=== PATIENT | female | born 1975 | race Two or more races ===

== ENCOUNTER → 2024-02-04 | Outpatient (CLI) | payer MEDICAID, SELFPAY ==
--- NOTE | 2024-02-04 14:03 | XR_ITS ---
Examination: Bilateral knees 2 views Right lateral knee left lateral knee 2 views Bilateral axial knees single view TECHNIQUE: Bilateral AP knees standing single view, bilateral PA knees standing single view 30 degrees flexion Standing right and left lateral knees 2 views Bilateral axial knees single view total 5 views Exam date and time: February 04, 2024 at 1505 hours INDICATIONS: Bilateral knee pain beginning 18 months ago FINDINGS: Advanced narrowing medial joint space right knee, [id number] Moderate osteoarthritis right patellofemoral joint No fracture or dislocation Mild to moderate narrowing medial joint space left knee Mild to moderate narrowing left patellofemoral joint No fracture or dislocation IMPRESSION: Advanced narrowing medial joint space right knee, [id number]
== END | disposition home or self-care (01) ==
LOC: CDIM 13:42
PROVIDERS: Referring Provider Orthopaedic Surgery Adult Reconstructive Orthopaedic Surgery; Visit Provider Orthopaedic Surgery Adult Reconstructive Orthopaedic Surgery
DX: M25.862 Other specified joint disorders, left knee (principal); M25.861 Other specified joint disorders, right knee
CPT/HCPCS: 73564

== ENCOUNTER 2024-02-26 13:48 | Outpatient (AMB) | payer MEDICAID, SELFPAY ==
--- NOTE | 2024-02-26 14:01 | RHCORTHONT_ITS ---
Vital signs 02/26/24 14:02 Height 1.52 m Height Method Stated Weight 69.938 kg Weight Measurement Method Standing Scale BMI 30.1 BP 147/85 H Blood Pressure Source Automatic Cuff Blood Pressure Location Right Upper Arm Position Sitting Respiration 18 Pulse 66 Pulse Source Monitor Temp 97.5 F Temp Source Temporal Artery Scan Pulse Oximetry (%) 100 Oxygen Delivery Method Room Air Med/Allergies Allergies & Medications Allergies No Known Allergies Allergy (Verified 03/25/21 17:26) Exam Exam Patient is in no acute distress and is cooperative with the examination today. Breathing is nonlabored. Patient has a normal mood and affect. Bilateral extremities were evaluated and demonstrates sensation intact to light touch. Palpable pedal pulses are present. No significant edema is present. Bilateral hips were examined. The patient has no pain with log roll of the hips. Internal rotation to 30 degrees and external rotation to 30 degrees is painless. Negative FADIR. Left knee was examined today. The left knee is in reasonable alignment. Range of motion from 0-120 degrees. Knee is stable to varus and valgus as well as AP translation with <5mm. Patient has a negative McMurrays. There is no pain with patellofemoral compression and no crepitus noted. The knee is nontender to palpation. The right knee was also examined. The right knee is in [varus] alignment. Range of motion from [0-115] degrees. Knee is stable to varus and valgus as well as AP translation with <5mm. Patient has a [negative] McMurrays. There is [no] pain with patellofemoral compression and [no] crepitus noted. The knee is [tender] to palpation [medially]. X-rays of the right knee demonstrate significant joint space narrowing medially with complete obliteration of medial joint space. There are osteophytes. Assessment and Plan Problem List (1) Arthritis of right knee: Status: Acute Plan: Patient is a 49-year-old female with right knee pain and right knee arthritis. We discussed nonoperative and operative options. We will start with a brace as well as repeat cortisone injections. She will need approval for this. We will see her back once we get approval for her injections Office Procedures GNS Level of Care Nursing/Assessment Patient Status: Established Patient Nursing Assessment/Reassesment: Medication Reconciliation, Update PMH in EMR and Vital Signs Coordination of Care: Complex Care and Chronic Disease 1-5, Education Complex Pt/Fam, Consent,records obtained, informed consent, Results/Orders obtained and Staff clarify orders Special Needs: Language special needs Established Patient Charge Established Patient Point Assignment: 95 Established Patient Point Charge: EP Level 4 (120-155) MA Intake Visit Data Collection New Patient or Established: Established Patient (seen at [facility] within 3 years) Reason for Visit:: right knee Administrative Court Justice Required: No PCP or OBGYN visit in last 3 months: Yes Hx Now: No Do You Feel Safe at Home: Yes Questionairres Past Medical History Past Medical History Have you ever been diagnosed with any of the following: Cardiology Problems Congestive Heart Failure: No Hypertension: Yes Respiratory Problems Chronic Obstructive Pulmonary Disease (COPD): No Smoking: No Smoking Exposure: No Genital/Urinary Problems Renal Disease: No Endocrine Problems Diabetes Mellitus Type 1: No Diabetes Mellitus Type 2: No Subjective Visit Visit for: new patient and knee Immunization / Flu Flu Vaccine in the Last 12 Months: Yes Flu Vaccine Exclusion Criteria: Already Received History of Present Illness Chief complaint: right knee pain Date of injury / onset of symptoms: years Patient is a 49-year-old female with severe right knee arthritis. The pain started affect her quality life and happiness. 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 She has tried 2 injections in the past and some anti- inflammatories. She has tried physical therapy but had persistent pain. Pain Pain level (0-10): 6 Pain duration: all day Pain location: inside (medial), outside (lateral), anterior and posterior Pain quality: sharp, dull and aching Pain timing: night and increases with activity Associated signs & symptoms: none Ambulatory data Ambulatory device: none Treatments Improvement with previous injections: No Improvement with PT: No Improvement with NSAIDS: n/a Review of Systems Review of Systems: All systems negative unless otherwise noted in HPI.
[2024-02-26 14:02] VITALS: BP 147/85; PULSE 66; RESP 18; TEMP 36.4; O2SAT 100; BMI 30.1
== END 2024-02-26 14:38 | disposition home or self-care (01) ==
LOC: HODSRG 13:48
PROVIDERS: PCP Physician Assistant Medical; Referring Provider Physician Assistant Medical; Supervising Provider Orthopaedic Surgery Adult Reconstructive Orthopaedic Surgery; Visit Provider Orthopaedic Surgery Adult Reconstructive Orthopaedic Surgery
DX: M17.11 Unilateral primary osteoarthritis, right knee (principal); M25.561 Pain in right knee; I10 Essential (primary) hypertension
CPT/HCPCS: 99214; G0463

== ENCOUNTER 2024-03-07 11:02 | Outpatient (AMB) | payer MEDICAID, SELFPAY ==
[2024-03-07 11:40] VITALS: BP 149/89; PULSE 66; RESP 19; TEMP 35.7; O2SAT 98; BMI 29.1
--- NOTE | 2024-03-07 11:40 | ORTHONT_ITS ---
Vital signs 03/07/24 11:40 Height 1.52 m Height Method Stated Weight 67.33 kg Weight Measurement Method Standing Scale BMI 29.1 BP 149/89 H Blood Pressure Source Automatic Cuff Blood Pressure Location Left Upper Arm Position Sitting Respiration 19 Pulse 66 Pulse Source Monitor Temp 96.3 F L Temp Source Temporal Artery Scan Pulse Oximetry (%) 98 Oxygen Delivery Method Room Air Med/Allergies Allergies & Medications Allergies No Known Allergies Allergy (Verified 03/07/24 11:43) Medication Reconciliation ibuprofen 600 mg tablet 600 mg PO Q6H PRN pain #14 tabs 06/02/19 [Rx Confirmed 03/07/24] albuterol sulfate 90 mcg/actuation aerosol inhaler (Ventolin HFA) 2 puff inhalation Q6H PRN shortness of breath or wheezing #8.5 grams 03/25/21 [Rx Confirmed 03/07/24] promethazine-DM 6.25 mg-15 mg/5 mL oral syrup 5 ml PO Q6H PRN cough #118 mL 03/25/21 [Rx Confirmed 03/07/24] acetaminophen 500 mg tablet (Tylenol Extra Strength) 1,000 mg (2 x 500 mg) PO Q6H PRN pain #30 tabs 05/15/23 [Rx Confirmed 03/07/24] ibuprofen 600 mg tablet 600 mg PO Q6H PRN pain #30 tabs 05/15/23 [Rx Confirmed 03/07/24] meloxicam 7.5 mg tablet 7.5 mg PO QDAY #45 tabs 02/26/24 [Rx Confirmed 03/07/24] Exam Exam Patient is in no acute distress and is cooperative with the examination today. Breathing is nonlabored. Patient has a normal mood and affect. Bilateral extremities were evaluated and demonstrates sensation intact to light touch. Palpable pedal pulses are present. No significant edema is present. Bilateral hips were examined. The patient has no pain with log roll of the hips. Internal rotation to 30 degrees and external rotation to 30 degrees is painless. Negative FADIR. Left knee was examined today. The left knee is in reasonable alignment. Range of motion from 0-120 degrees. Knee is stable to varus and valgus as well as AP translation with <5mm. Patient has a negative McMurrays. There is no pain with patellofemoral compression and no crepitus noted. The knee is nontender to palpation. The right knee was also examined. The right knee is in [varus] alignment. Range of motion from [0-115] degrees. Knee is stable to varus and valgus as well as AP translation with <5mm. Patient has a [negative] McMurrays. There is [no] pain with patellofemoral compression and [no] crepitus noted. The knee is [tender] to palpation [medially]. X-rays of the right knee demonstrate significant joint space narrowing medially with complete obliteration of medial joint space. There are osteophytes. Assessment and Plan Problem List (1) Arthritis of right knee: Status: Acute Plan: Patient is a 49-year-old female with right knee pain and right knee arthritis. We discussed nonoperative and operative options. We will start with a brace as well as repeat cortisone injections. \ Plan Recommend knee cortisone injection as patient would like to proceed with conservative treatment at this time. The risks and benefits of the procedure were reviewed with the patient and patient gave verbal consent to continue with the procedure. Procedure: performed by Dr. Dupree Using sterile technique the Right knee was thoroughly prepped with alcohol, and approximately 1 cc of Kenalog 40 mg/mL and 4 cc of 1% lidocaine was injected without resistance into the medial tibial femoral joint space. The patient tolerated the procedure. Office Procedures GNS Level of Care Nursing/Assessment Patient Status: Established Patient Nursing Assessment/Reassesment: Medication Reconciliation, Update PMH in EMR and Vital Signs Coordination of Care: Complex Care and Chronic Disease 1-5, Education Complex Pt/Fam, Consent,records obtained, informed consent, 1 Ins Authorization, Results/Orders obtained and Staff clarify orders Special Needs: Language special needs Established Patient Charge Established Patient Point Assignment: 110 Established Patient Point Charge: EP Level 3 (80-115) Surgical Proc/IM SQ injection Major Surgical Procedure: Yes (knee injection right) Medication Given Medication Given Medication Given: Yes Documented Dose Given: 4 Route: Infiitration Medication Given Medication Given Medication Given: Yes Documented Dose Given: 1 Route: Infiitration Office Meds Xylocaine 10 mg/mL (1 %) injection solution Performing Provider: Fernadno Dupree MD Performing Location: [facility] Administered by: Fernando Dupree MD on 03/07/24 11:44 Dose Route Admin Location Dispensed Lot Number Expiration Date FORMERLY NAMED [facility] [employer]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 20 mL Infiltration 20 mL [id number] 11/08/26 86418-757-97 [employer] triamcinolone acetonide 40 mg/mL suspension for injection Performing Provider: Fernando Dupree MD Performing Location: [facility] Administered by: Fernando Dupree MD on 03/07/24 11:44 Dose Route Admin Location Dispensed Lot Number Expiration Date FORMERLY NAMED [facility] [employer]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 40 mg intra-articular 1 mL [id number] 08/08/25 4186-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-66 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 Intake Visit Data Collection New Patient or Established: Established Patient (seen at [facility] within 3 years) Reason for Visit:: follow up knee inj Seen by Clinical Staff ONLY (RN/MA): No Bonded Strand Operator Required: Yes PCP or OBGYN visit in last 3 months: Yes Hx Now: No Do You Feel Safe at Home: Yes Authorities Contacted: N/A Questionairres Past Medical History Past Medical History Have you ever been diagnosed with any of the following: Cardiology Problems Congestive Heart Failure: No Hypertension: Yes Respiratory Problems Chronic Obstructive Pulmonary Disease (COPD): No Smoking: No Smoking Exposure: No Genital/Urinary Problems Renal Disease: No Endocrine Problems Diabetes Mellitus Type 1: No Diabetes Mellitus Type 2: No Subjective Visit Visit for: follow up visit and knee Immunization / Flu Flu Vaccine in the Last 12 Months: No Flu Vaccine Exclusion Criteria: No Exclusion Criteria History of Present Illness Chief complaint: right knee oa Patient is a 49-year-old female with severe right knee arthritis. The pain started affect her quality life and happiness. 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 She has tried 2 injections in the past and some anti- inflammatories. She has tried physical therapy but had persistent pain. Pain Pain level (0-10): 3 Pain duration: on and off Pain location: inside (medial) Pain quality: aching Pain timing: increases with activity Associated signs & symptoms: none Ambulatory data Ambulatory device: none Treatments Improvement with previous injections: No Improvement with PT: No Improvement with NSAIDS: no Review of Systems Review of Systems: All systems negative unless otherwise noted in HPI.
== END 2024-03-07 11:47 | disposition home or self-care (01) ==
LOC: HODSRG 11:02
PROVIDERS: Supervising Provider Orthopaedic Surgery Adult Reconstructive Orthopaedic Surgery; Visit Provider Orthopaedic Surgery Adult Reconstructive Orthopaedic Surgery
DX: M17.11 Unilateral primary osteoarthritis, right knee (principal); M25.561 Pain in right knee; I10 Essential (primary) hypertension
CPT/HCPCS: 20610; 99213; J3301; J3490; G0463

== ENCOUNTER 2024-07-03 14:31 | Outpatient (AMB) | payer MEDICAID, SELFPAY ==
[2024-07-03 14:47] VITALS: BP 167/92; PULSE 61; RESP 18; TEMP 36.2; O2SAT 98; BMI 29.9
--- NOTE | 2024-07-03 14:47 | PD.ORTHCLVIS ---
Vital signs 07/03/24 14:47 Height 1.52 m Height Method Stated Weight 69.201 kg Weight Measurement Method Standing Scale BMI 29.9 BP 167/92 H Blood Pressure Source Automatic Cuff Blood Pressure Location Left Upper Arm Position Sitting Respiration 18 Pulse 61 Pulse Source Monitor Temp 97.1 F Temp Source Temporal Artery Scan Pulse Oximetry (%) 98 Oxygen Delivery Method Room Air Med/Allergies Allergies & Medications Allergies No Known Allergies Allergy (Verified 07/03/24 14:48) Medication Reconciliation albuterol sulfate 90 mcg/actuation aerosol inhaler (Ventolin HFA) 2 puff inhalation Q6H PRN shortness of breath or wheezing #8.5 grams 03/25/21 [Rx Confirmed 07/03/24] promethazine-DM 6.25 mg-15 mg/5 mL oral syrup 5 ml PO Q6H PRN cough #118 mL 03/25/21 [Rx Confirmed 07/03/24] acetaminophen 500 mg tablet (Tylenol Extra Strength) 1,000 mg (2 x 500 mg) PO Q6H PRN pain #30 tabs 05/15/23 [Rx Confirmed 07/03/24] ibuprofen 600 mg tablet 600 mg PO Q6H PRN pain #30 tabs 05/15/23 [Rx Confirmed 07/03/24] meloxicam 7.5 mg tablet 7.5 mg PO QDAY #45 tabs 02/26/24 [Rx Confirmed 07/03/24] Exam Exam Patient is in no acute distress and is cooperative with the examination today. Breathing is nonlabored. Patient has a normal mood and affect. Bilateral extremities were evaluated and demonstrates sensation intact to light touch. Palpable pedal pulses are present. No significant edema is present. Bilateral hips were examined. The patient has no pain with log roll of the hips. Internal rotation to 30 degrees and external rotation to 30 degrees is painless. Negative FADIR. Left knee was examined today. The left knee is in reasonable alignment. Range of motion from 0-120 degrees. Knee is stable to varus and valgus as well as AP translation with <5mm. Patient has a negative McMurrays. There is no pain with patellofemoral compression and no crepitus noted. The knee is nontender to palpation. The right knee was also examined. The right knee is in [varus] alignment. Range of motion from [0-115] degrees. Knee is stable to varus and valgus as well as AP translation with <5mm. Patient has a [negative] McMurrays. There is [no] pain with patellofemoral compression and [no] crepitus noted. The knee is [tender] to palpation [medially]. X-rays of the right knee demonstrate significant joint space narrowing medially with complete obliteration of medial joint space. There are osteophytes. Assessment and Plan Problem List (1) Arthritis of right knee: Status: Acute Plan: Patient is a 49-year-old female with right knee pain and right knee arthritis. We discussed nonoperative and operative options. Given that she is failed injections x 3, anti-inflammatories, and physical therapy. We discussed total knee replacement on the right as a reasonable option. She is exhausted conservative treatment and the pain is affecting her quality life and happiness. We discussed that she is on the young side for her age and may need a revision surgery in the future if she outlasts the implant Plan The nature and purpose of the total knee replacement, alternative method(s) of treatment, the material risks involved, and the possibility of complications were fully explained to the patient. The patient does NOT have any of the following contraindications to TKA: - Active infection of the knee joint, OR - Active systemic bacteremia, OR - Active skin infection or open wound at surgical site, OR - Neuropathic arthritis, OR - Severe, rapidly progressive neurological disease, OR - Severe medical condition that makes risks of surgery outweigh the potential benefit The patient was told the most common risks and complications associated with a total knee replacement include, but are not limited to: blood clots in the leg, fatal pulmonary embolism, dislocation of the prosthesis, intraoperative and postoperative fractures of the femur or tibia, infection, failure of the prosthesis or grafting materials, complications from anesthesia, reactions to blood transfusions, postoperative leg length inequality, instability of the knee replacement, nerve damage or injury, vascular injury, delayed wound healing, infection, other injury or even . In addition, there are risks associated with anesthesia given during this operation. Also, the patient was told that after undergoing a total knee replacement there may still be persistent pain or disability. The patient was informed that the success of this operation in part depends upon the mechanical devices which are going to be implanted and that these devices can fail or malfunction, and may need to be repaired or replaced and there are no guarantees as to the longevity of this device or its parts and that it or its parts could fail prematurely. The patient was also notified that during the course of surgery, there may be a need to use bone graft from donors, and that any bone graft used will be carefully screened for communicable diseases, including AIDS, hepatitis, Jake-Creutzfeldt, or other diseases, but despite the screening procedures, there is a small chance that they could contract one of these diseases. Finally, the patient was asked to follow completely and fully with all advice and recommended treatments, and that recovery and ultimate outcome are affected by their compliance with recommended treatment. We discussed the risks, benefits and treatment alternatives, and the patient is interested in proceeding with surgery. We will try to set this up as expeditiously as possible. Office Procedures GNS Level of Care Nursing/Assessment Patient Status: Established Patient Nursing Assessment/Reassesment: Medication Reconciliation, Update PMH in EMR and Vital Signs Coordination of Care: Complex Care and Chronic Disease 1-5, Education Complex Pt/Fam, Consent,records obtained, informed consent, Results/Orders obtained and Staff clarify orders Established Patient Charge Established Patient Point Assignment: 95 Established Patient Point Charge: EP Level 3 (80-115) MA Intake Visit Data Collection New Patient or Established: Established Patient (seen at [facility] within 3 years) Reason for Visit:: FOLLOW UP KNEE PAIN Seen by Clinical Staff ONLY (RN/MA): No Night Shift Manager Required: Yes PCP or OBGYN visit in last 3 months: Yes Hx Now: No Do You Feel Safe at Home: Yes Authorities Contacted: N/A Questionairres Past Medical History Past Medical History Have you ever been diagnosed with any of the following: Cardiology Problems Congestive Heart Failure: No Hypertension: Yes Respiratory Problems Chronic Obstructive Pulmonary Disease (COPD): No Smoking: No Smoking Exposure: No Genital/Urinary Problems Renal Disease: No Endocrine Problems Diabetes Mellitus Type 1: No Diabetes Mellitus Type 2: No Subjective Visit Visit for: follow up visit and knee Immunization / Flu Flu Vaccine in the Last 12 Months: No Flu Vaccine Exclusion Criteria: No Exclusion Criteria History of Present Illness Chief complaint: right knee oa Patient is a 49-year-old female with severe right knee arthritis. The pain started affect her quality life and happiness. 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 She has tried 3 injections in the past and some anti-inflammatories. She has tried physical therapy but had persistent pain. Pain Pain level (0-10): 9 Pain duration: ALL DAY Pain location: posterior Pain quality: sharp, dull and aching Pain timing: increases with activity Associated signs & symptoms: none Ambulatory data Ambulatory device: none Treatments Number of previous injections: 1 Improvement with previous injections: No Improvement with PT: No Improvement with NSAIDS: no Review of Systems Review of Systems: All systems negative unless otherwise noted in HPI.
== END 2024-07-03 14:56 | disposition home or self-care (01) ==
LOC: HODSRG 14:31
PROVIDERS: Supervising Provider Orthopaedic Surgery Adult Reconstructive Orthopaedic Surgery; Visit Provider Orthopaedic Surgery Adult Reconstructive Orthopaedic Surgery
DX: M17.11 Unilateral primary osteoarthritis, right knee (principal); M25.561 Pain in right knee; I10 Essential (primary) hypertension
CPT/HCPCS: 99213; G0463

== ENCOUNTER → 2024-09-19 | Outpatient (CLI) | payer MEDICAID, SELFPAY ==
[2024-09-19 11:28] LABS: HCG Qualitative,Urine Negative
--- NOTE | 2024-09-19 12:00 | XR_ITS ---
Examination: CT right lower extremity, without contrast. 2-D sagittal reconstructions. 2-D coronal reconstructions. 3-D reconstructions. Date and time of exam:07/20/2024 1149 hours INDICATIONS: Diagnosis unilateral right knee osteoarthritis, right knee pain 2 years CTDI: vol (mGy):26.45 DLP: (mGycm):943 Technique: Multiple 1.25 mm axial sections of the right lower extremity without intravenous contrast have been obtained. 2-D sagittal and coronal reconstructions have been obtained. 3-D reconstructions have been obtained. Low dose protocols were performed. One or more of the following dose reduction techniques were used; automated exposure control, adjustment of the mA and/or KV according to patient size, use of iterative reconstruction technique. Findings: Moderate osteopenia Mild to moderate narrowing hip joints bilaterally Severe narrowing medial joint space right knee Moderate osteoarthritis lateral patellofemoral joints No fractures No patellar dislocation IMPRESSION: Severe narrowing medial joint space right knee
== END | disposition home or self-care (01) ==
PROVIDERS: PCP Physician Assistant Medical; Referring Provider Radiology Diagnostic Radiology; Visit Provider Orthopaedic Surgery Adult Reconstructive Orthopaedic Surgery
DX: M25.861 Other specified joint disorders, right knee (principal); Z32.00 Encounter for pregnancy test, result unknown
CPT/HCPCS: 73700; 81025

== ENCOUNTER 2024-09-23 10:11 | Outpatient (AMB) | payer MEDICAID, SELFPAY ==
--- NOTE | 2024-09-23 10:55 | PD.ORTHCLVIS ---
Vital signs 09/23/24 10:56 Height 1.52 m Height Method Stated Weight 70.335 kg Weight Measurement Method Standing Scale BMI 30.4 BP 152/79 H Blood Pressure Source Automatic Cuff Blood Pressure Location Left Upper Arm Position Sitting Respiration 18 Pulse 80 Pulse Source Monitor Temp 96.7 F L Temp Source Temporal Artery Scan Pulse Oximetry (%) 97 Oxygen Delivery Method Room Air Med/Allergies Allergies & Medications Allergies No Known Allergies Allergy (Verified 09/23/24 10:56) Medication Reconciliation albuterol sulfate 90 mcg/actuation aerosol inhaler (Ventolin HFA) 2 puff inhalation Q6H PRN shortness of breath or wheezing #8.5 grams 03/25/21 [Rx Confirmed 07/03/24] promethazine-DM 6.25 mg-15 mg/5 mL oral syrup 5 ml PO Q6H PRN cough #118 mL 03/25/21 [Rx Confirmed 09/23/24] acetaminophen 500 mg tablet (Tylenol Extra Strength) 1,000 mg (2 x 500 mg) PO Q6H PRN pain #30 tabs 05/15/23 [Rx Confirmed 09/23/24] ibuprofen 600 mg tablet 600 mg PO Q6H PRN pain #30 tabs 05/15/23 [Rx Confirmed 09/23/24] meloxicam 7.5 mg tablet 7.5 mg PO QDAY #45 tabs 07/03/24 [Rx Confirmed 09/23/24] Exam Exam Patient is in no acute distress and is cooperative with the examination today. Breathing is nonlabored. Patient has a normal mood and affect. Bilateral extremities were evaluated and demonstrates sensation intact to light touch. Palpable pedal pulses are present. No significant edema is present. Bilateral hips were examined. The patient has no pain with log roll of the hips. Internal rotation to 30 degrees and external rotation to 30 degrees is painless. Negative FADIR. Left knee was examined today. The left knee is in reasonable alignment. Range of motion from 0-120 degrees. Knee is stable to varus and valgus as well as AP translation with <5mm. Patient has a negative McMurrays. There is no pain with patellofemoral compression and no crepitus noted. The knee is nontender to palpation. The right knee was also examined. The right knee is in [varus] alignment. Range of motion from [0-115] degrees. Knee is stable to varus and valgus as well as AP translation with <5mm. Patient has a [negative] McMurrays. There is [no] pain with patellofemoral compression and [no] crepitus noted. The knee is [tender] to palpation [medially]. X-rays of the right knee demonstrate significant joint space narrowing medially with complete obliteration of medial joint space. There are osteophytes. Assessment and Plan Problem List (1) Arthritis of right knee: Status: Acute Plan: Patient is a 49-year-old female with right knee pain and right knee arthritis. We discussed nonoperative and operative options. Given that she is failed injections x 3, anti-inflammatories, and physical therapy. We discussed total knee replacement on the right as a reasonable option. She is exhausted conservative treatment and the pain is affecting her quality life and happiness. We discussed that she is on the young side for her age and may need a revision surgery in the future if she outlasts the implant We will set her up for an injection on the left side as the left knee has been bothering her. She has had for surgery on the right side in 1 week Recommend knee cortisone injection as patient would like to proceed with conservative treatment at this time. The risks and benefits of the procedure were reviewed with the patient and patient gave verbal consent to continue with the procedure. Procedure: performed by Dr. Dupree Using sterile technique the left knee was thoroughly prepped with alcohol, and approximately 1 cc of Kenalog 40 mg/mL and 4 cc of 1% lidocaine was injected without resistance into the medial tibial femoral joint space. The patient tolerated the procedure. Plan The nature and purpose of the total knee replacement, alternative method(s) of treatment, the material risks involved, and the possibility of complications were fully explained to the patient. The patient does NOT have any of the following contraindications to TKA: - Active infection of the knee joint, OR - Active systemic bacteremia, OR - Active skin infection or open wound at surgical site, OR - Neuropathic arthritis, OR - Severe, rapidly progressive neurological disease, OR - Severe medical condition that makes risks of surgery outweigh the potential benefit The patient was told the most common risks and complications associated with a total knee replacement include, but are not limited to: blood clots in the leg, fatal pulmonary embolism, dislocation of the prosthesis, intraoperative and postoperative fractures of the femur or tibia, infection, failure of the prosthesis or grafting materials, complications from anesthesia, reactions to blood transfusions, postoperative leg length inequality, instability of the knee replacement, nerve damage or injury, vascular injury, delayed wound healing, infection, other injury or even . In addition, there are risks associated with anesthesia given during this operation. Also, the patient was told that after undergoing a total knee replacement there may still be persistent pain or disability. The patient was informed that the success of this operation in part depends upon the mechanical devices which are going to be implanted and that these devices can fail or malfunction, and may need to be repaired or replaced and there are no guarantees as to the longevity of this device or its parts and that it or its parts could fail prematurely. The patient was also notified that during the course of surgery, there may be a need to use bone graft from donors, and that any bone graft used will be carefully screened for communicable diseases, including AIDS, hepatitis, Jake-Creutzfeldt, or other diseases, but despite the screening procedures, there is a small chance that they could contract one of these diseases. Finally, the patient was asked to follow completely and fully with all advice and recommended treatments, and that recovery and ultimate outcome are affected by their compliance with recommended treatment. We discussed the risks, benefits and treatment alternatives, and the patient is interested in proceeding with surgery. We will try to set this up as expeditiously as possible. Office Procedures GNS Level of Care Nursing/Assessment Patient Status: Established Patient Nursing Assessment/Reassesment: Medication Reconciliation, Update PMH in EMR and Vital Signs Coordination of Care: Complex Care and Chronic Disease 1-5, Education Complex Pt/Fam, Consent,records obtained, informed consent, Results/Orders obtained and Staff clarify orders Special Needs: Language special needs Established Patient Charge Established Patient Point Assignment: 95 Established Patient Point Charge: EP Level 3 (80-115) MA Intake Visit Data Collection New Patient or Established: Established Patient (seen at [facility] within 3 years) Reason for Visit:: PRE OP Seen by Clinical Staff ONLY (RN/MA): No 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 Digester 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 Required: Yes PCP or OBGYN visit in last 3 months: Yes Hx Now: No Do You Feel Safe at Home: Yes Authorities Contacted: N/A Questionairres Past Medical History Past Medical History Have you ever been diagnosed with any of the following: Cardiology Problems Congestive Heart Failure: No Hypertension: Yes Respiratory Problems Chronic Obstructive Pulmonary Disease (COPD): No Smoking: No Smoking Exposure: No Genital/Urinary Problems Renal Disease: No Endocrine Problems Diabetes Mellitus Type 1: No Diabetes Mellitus Type 2: No Subjective Visit Visit for: follow up visit and knee Immunization / Flu Flu Vaccine in the Last 12 Months: No Flu Vaccine Exclusion Criteria: No Exclusion Criteria History of Present Illness Chief complaint: right knee oa Patient is a 49-year-old female with severe right knee arthritis. The pain started affect her quality life and happiness. 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 She has tried 3 injections in the past and some anti-inflammatories. She has tried physical therapy but had persistent pain. Personal History Additional comments: WALKER WAS GIVEN TO PATIENT Pain Pain level (0-10): 8 Pain duration: ALL DAY Pain location: inside (medial), anterior and posterior Pain quality: sharp, dull and aching Pain timing: night, increases with activity and stairs Associated signs & symptoms: none Ambulatory data Ambulatory device: walker (GIVEN TODAY FOR SX) and none Treatments Number of previous injections: 1 Improvement with previous injections: No Improvement with PT: No Improvement with NSAIDS: no Review of Systems Review of Systems: All systems negative unless otherwise noted in HPI.
[2024-09-23 10:56] VITALS: BP 152/79; PULSE 80; RESP 18; TEMP 35.9; O2SAT 97; BMI 30.4
== END 2024-09-23 11:11 | disposition home or self-care (01) ==
LOC: HODSRG 10:11
PROVIDERS: PCP Physician Assistant Medical; Referring Provider Physician Assistant Medical; Supervising Provider Orthopaedic Surgery Adult Reconstructive Orthopaedic Surgery; Visit Provider Orthopaedic Surgery Adult Reconstructive Orthopaedic Surgery
DX: M17.11 Unilateral primary osteoarthritis, right knee (principal); M25.561 Pain in right knee; I10 Essential (primary) hypertension
CPT/HCPCS: 20610; 99213; J3301; J3490; G0463

== ENCOUNTER 2024-10-01 06:50 | Day surgery (SDC) | payer MEDICAID, SELFPAY ==
[2024-09-30 07:51] VITALS: BMI 30.4
--- NOTE | 2024-09-30 07:59 | EKG_ITS ---
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
[2024-09-30 08:41] LABS: Basophils # (Auto) 0.0 Thou/mm3 (0.0-0.2); Basophils % (Auto) 1 % (0-2.5); Eosinophils # (Auto) 0.1 Thou/mm3 (0.0-0.5); Eosinophils % (Auto) 1 % (0-10); Hematocrit 39.1 % (36.0-46.0); Hemoglobin 13.1 g/dL (12.0-16.0); Immature Granulocytes Auto 0.02 Thou/mm3 (0.00-0.00); Lymphocytes # (Auto) 3.0 Thou/mm3 (1.0-4.8); Lymphocytes % (Auto) 42 % (10-50); Mean Corpuscular HGB Conc 33.5 g/dl (31.0-37.0); Mean Corpuscular Hemoglobin 29.2 pg (25.0-35.0); Mean Corpuscular Volume 87 fL (80-100); Monocytes # (Auto) 0.5 Thou/mm3 (0.0-0.8); Monocytes % (Auto) 7 % (0-12); Neutrophils # (Auto) 3.7 Thou/mm3 (1.8-7.7); Neutrophils % (Auto) 50 % (37-80); Nucleated Red Blood Cell # 0.00 Thou/mm3 (0.00-0.00); Nucleated Red Blood Cell % 0 /100 WBC (0); Platelet Count 279 Thou/mm3 (140-440); RDW Standard Deviation 42.1 fL (36.4-46.3); Red Blood Count 4.49 Miln/mm3 (4.00-5.20); White Blood Count 7.3 Thou/mm3 (3.6-11.0)
[2024-09-30 09:00] LABS: INR 1.0 (0.9-1.3); Partial Thromboplastin Time 27.0 Seconds (22.0-36.0); Prothrombin Time 10.5 Seconds (9.0-12.2)
[2024-09-30 09:09] LABS: HCG,Qualitative Serum Negative
[2024-09-30 09:12] LABS: Alanine Aminotransferase 25 U/L (10-49); Albumin, Serum 4.7 gm/dL (3.5-5.0); Albumin/Globulin Ratio 1.9 (1.2-2.2); Alkaline Phosphatase 112 U/L (46-116); Anion Gap 9 (7-16); Aspartate Amino Transferase 17 U/L (0-34); BUN/Creatinine Ratio 14 Ratio (12-20); Bilirubin,Total 0.4 mg/dL (0.3-1.2); Blood Urea Nitrogen 10 mg/dL (9-23); Calcium 9.3 mg/dL (8.3-10.6); Calcium (Corrected) 9.3 mg/dL (8.5-10.1); Carbon Dioxide 27.8 mMol/L (20.0-31.0); Chloride 106 mMol/L (98-107); Creatinine (Component) 0.7 mg/dL (0.6-1.3); Estimated Creatinine Clearance 85.4 mL/min (>60); Globulin 2.5 gm/dL (2.3-3.5); Glucose 91 mg/dL (74-106); Osmolality,Calculated 283 (275-295); Potassium 4.1 mMol/L (3.4-5.1); Sodium 143 mMol/L (136-145); Total Protein 7.2 gm/dL (5.7-8.2); eGFR > 60 See Note
[2024-10-01] VITALS (20 sets, daily range): BP systolic 110–148; BP diastolic 60–90; PULSE 70–103; RESP 14–21; TEMP 36.2–37.6; O2SAT 94–100; BMI 30.4
[2024-10-01] MEDS: ACETAMINOPHEN 325 MG TABLET 650 MG PO (07:27)
[2024-10-01] MEDS: MELOXICAM 7.5 MG TABLET PO (07:27)
[2024-10-01] MEDS: PREGABALIN 75 MG CAPSULE PO (07:27)
--- NOTE | 2024-10-01 13:08 | ESOP_ITS ---
Date of Procedure 10/01/24 Pre Op Diagnosis right knee osteoarthritis Post Op Diagnosis right knee osteoarthritis Procedure right total knee replacment fransico Findings full thickness cartilage loss and osteophytes Procedure Description Indication: The patient is a 49 year old who has a long history of right knee pain. X-rays show degenerative arthritis involving the knee. Over the past several years the patient has had increasing pain, progressive limitation in function. He has failed conservative measures including activity modification, physical therapy, injections, anti-inflammatories, and assistive devices. After a lengthy discussion of the risks and benefits, the patient presents now for total knee replacement. The nature and purpose of the total knee replacement, alternative method(s) of treatment, the material risks involved, and the possibility of complications were fully explained to the patient. The patient was told the most common risks and complications associated with a total knee replacement include, but are not limited to blood clots in the leg, fatal pulmonary embolism, dislocation of the prosthesis, intraoperative and postoperative fractures of the femur or tibia, infection, failure of the prosthesis or grafting materials, complications from anesthesia, reactions to blood transfusions, postoperative leg length inequality, instability of the knee replacement, nerve damage or injury, vascular injury, delayed wound healing, infections, other injury or even . In addition, there are risks associated with anesthesia given during this operation, temporary or permanent numbness on the skin lateral to the incision can be a complication unique to total knee surgery, and kneeling can be painful after knee replacement surgery. Also, the patient was told that after undergoing a total knee replacement there may still be pain or disability. We discussed with the patient that we will be using a robot-assisted technology. We discussed that there is a possibility of converting to manual instrumentation. The patient was informed that the success of this operation in part depends upon the mechanical devices which are going to be implanted and that these devices can fail or malfunction, and may need to be repaired or replaced and there are no guarantees as to the longevity of this device or its part and that it or its parts could fail prematurely. Finally, the patient was asked to follow completely and fully with all advice and recommended treatments, and that recovery and ultimate outcome are affected by their compliance with recommended treatment. Surgical technique: Patient was marked and consented in the pre-operative area. The patient was brought to the operating room and placed on the operating table in a supine position. Prior to positioning, a timeout procedure was performed between the surgeon, the anesthesiologist, and the nursing staff where the patient and the operative side were identified and confirmed. After adequate general anesthetic was obtained, the right lower extremity was prepped and draped in the usual sterile fashion. A weight based dose of Cefazolin were administered within 1 hour prior to incision. The robot was preregistered and calirated before the incision. The extremity was exsanguinated with an esmarch badge and tourniquet inflated to 250mmHg. A midline incision was made. A median parapatellar arthrotomy was made. The patella was subluxed laterally. A medial release was performed to expose the medial tibia. His femoral and tibial pins were placed through an intra incisional manner for both cases. Every effort was made to ensure that the distalmost aspect of the pin was hung in the second cortex. The arrays were then tightened several times to ensure that it was fixed for the remainder of the case. Both femoral and tibial checkpoints were then placed. We then went through the registration process of the bone. We then assessed the knee deformity and attempted to correct it. We also used the robot to aid in judging laxity in both extension and flexion. Final based on laxity and alignment we changed the preoperative assessment to obtain proper proper implant positioning and to correct deformity. Attention was then placed to the tibia. We made a tibial cut using the robot ensuring that both the MCL and the patella tendon were protected with retractors. We then went to the femur and made the posterior cut followed by the anterior cut and the anterior chamfer. The bone was then removed and we made a distal femur cut and a posterior chamfer cut. We verified all cuts. A trial reduction was performed with a size 2 femoral component and a size [2] keeled tibial component. The patella tracked centrally, and no lateral retinacular release was necessary. The trial implants were removed. The arrays, pins, and checkpoints were all removed. We performed a verification that all pins were removed. The cut bone surfaces were lavaged. A size 2 right femoral component, a size [2] keeled tibial component were impacted into position. The knee was felt to be well balanced in the sagittal and coronal plane. The final [2x12] mm cruciate-substituting articular insert was impacted into the tibial tray. The knee was brought out to full extension, flexed up to 120 degrees. It was stable to varus and valgus stress and appropriately balanced in flexion and extension. The wounds were copiously irrigated following deflation of tourniquet. The medial retinaculum was reapproximated with #1 vicryl and quill. The subcutaneous tissues were closed with 0 and 2-0 interrupted Vicryl. The skin was closed with 3-0 Monofilament V loc suture. A sterile dressing was applied. The patient was transferred to a bed and brought to recovery in stable condition. The patient tolerated the procedure well. There were no intraoperative complications. Sponge and needle counts were correct times 2. As the attending surgeon, I attest I was present and performed the entire operation. Grafts/Implants Size 2 CR Femur Size [2] Tibia [12]mm poly CS Anesthesia spinal Implants shreyas Pathology / specimen None Pathology comment: none Estimated Blood Loss 150 Condition Stable Disposition same day Surgeon Fernando Dupree MD Surgical Staff Operation Date: 10/01/24 11:00 Case Staff Anesthesiologist: Jose Hollis RNmedication technician: Lynsey Purcell
--- NOTE | 2024-10-01 13:15 | SUR.PHASEI ---
1315: Pt. wakes to name then drifts back to sleep, vitals stable, breathing unlabored, no complaint of pain or nausea, dressing to right knee CDI, no active bleed noted, pt. able to wiggle bilateral feet, cap refill to bilateral feet less than 3 seconds, bilateral dorsalis pedis pulses strong and regular, report received from MD Hollis and Lisbeth HOLM.
--- NOTE | 2024-10-01 13:24 | XR_ITS ---
Examination: Knee, right , 3 views Technique: Knee AP, lateral, oblique 3 views Date and time of exam: October 01, 2024 1329 hours INDICATIONS: Postop knee replacement today. FINDINGS: Total right knee arthroplasty. Satisfactory alignment No fracture IMPRESSION: Total right knee replacement with satisfactory alignment
[2024-10-01] MEDS: ACETAMINOPHEN IVPB 1,000 MG/100 ML VIAL 250 MG IV (16:25)
--- NOTE | 2024-10-01 16:50 | SUR.PHASEII ---
report from nurse asif. vss. dressing cdi. denies pain and nausea. breathing even and unlabored.
--- NOTE | 2024-10-01 16:50 | SUR.PHASEII ---
1650: Report given to Consuelo HOLM to resume care of pt. Pt. AAOx4, vitals stable, breathing unlabored, no complaint of pain or nausea, dressing to right knee CDI, no active bleed noted, discharge instructions given to the pt. 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 Pt. still needs to walk with physical therapy and urinate in order to go home.
--- NOTE | 2024-10-01 18:00 | SUR.PHASEII ---
armani used 200 ml urine back. pt unable to walk wit pt ericka. knee mary.
--- NOTE | 2024-10-01 19:00 | SUR.PHASEII ---
pt ambulated with ericka PT and cleared. pt discharged with all belongings. dressing remains cdi. vss. both verbalized dc instructions including exercises. discharged with all belongings via wheelchair.
--- NOTE | 2024-10-03 13:54 | ESPR_ITS ---
Documentation for date of: 10/03/24 POST ANESTHESIA NOTE: Patient had GETA and spinal anesthesia and R adductor canal block for R TKA on 10/01/24. I just called and spoke with her on the phone via corporate fitness program coordinator and she denied any problems from anesthesia. Jose Hollis MD Anesthesia Progress Note Progress Note Most recent Vital Signs: Last Vital Signs Temp 99 F 10/01/24 19:00 Pulse 80 10/01/24 19:00 Resp 18 10/01/24 19:00 BP 130/69 10/01/24 19:00 Pulse Ox 96 10/01/24 19:00 O2 Flow Rate 2 10/01/24 13:30
== END 2024-10-01 19:00 | disposition home or self-care (01) ==
PROVIDERS: Anesthesiology; PCP Physician Assistant Medical; Referring Provider Orthopaedic Surgery Adult Reconstructive Orthopaedic Surgery; Visit Provider Orthopaedic Surgery Adult Reconstructive Orthopaedic Surgery
PROC: (CPT 27447; principal; 2024-10-01 10:45)
DX: M17.11 Unilateral primary osteoarthritis, right knee (principal); Z01.810 Encounter for preprocedural cardiovascular examination; M25.761 Osteophyte, right knee
CPT/HCPCS: 27447; 20985; 36415; 73562; 80048; 80053; 84703; 85025; 85610; 85730; 93005; 97163; A4217; C1713; C1776; J0131; J0690; J1100; J2250; J2405; J2704; J2795; J3010; J3490; J7999; A4648; A4649; A9270; J1805

== ENCOUNTER 2024-10-17 14:08 | Outpatient (AMB) | payer MEDICAID, SELFPAY ==
--- NOTE | 2024-10-17 14:29 | PD.ORTHCLVIS ---
Vital signs 10/17/24 14:30 Height 1.52 m Height Method Stated Weight 70.108 kg Weight Measurement Method Standing Scale BMI 30.3 BP 132/89 H Blood Pressure Source Automatic Cuff Blood Pressure Location Left Upper Arm Position Sitting Respiration 18 Pulse 79 Pulse Source Monitor Temp 97.3 F Temp Source Temporal Artery Scan Pulse Oximetry (%) 94 L Oxygen Delivery Method Room Air Med/Allergies Allergies & Medications Allergies No Known Allergies Allergy (Verified 10/17/24 14:31) Medication Reconciliation meloxicam 7.5 mg tablet 7.5 mg PO QDAY #45 tabs 07/03/24 [Rx Confirmed 10/17/24] atorvastatin 10 mg tablet 10 mg PO DAILY 09/30/24 [History Confirmed 10/17/24] hydroxyzine HCl 25 mg tablet 25 mg PO HS PRN sleep 09/30/24 [History Confirmed 10/17/24] losartan 100 mg tablet 100 mg PO DAILY 09/30/24 [History Confirmed 10/17/24] acetaminophen 500 mg tablet (Acetaminophen Extra Strength) 1,000 mg (2 x 500 mg) PO Q6H PRN pain #90 tabs 10/01/24 [Rx Confirmed 10/17/24] aspirin 81 mg tablet,delayed release 81 mg PO BID #60 tabs 10/01/24 [Rx Confirmed 10/17/24] doxycycline hyclate 100 mg tablet 100 mg PO BID #14 tabs 10/01/24 [Rx Confirmed 10/17/24] gabapentin 300 mg capsule 300 mg PO .qhs #30 caps 10/01/24 [Rx Confirmed 10/17/24] oxycodone 5 mg tablet 5 mg PO Q6H PRN pain #28 tabs 10/01/24 [Rx Confirmed 10/17/24] sennosides 8.6 mg-docusate sodium 50 mg tablet (Senna-S) 1 tab-cap PO QDAY #30 tabs 10/01/24 [Rx Confirmed 10/17/24] oxycodone 5 mg tablet 5 mg PO Q6H PRN pain #28 tabs 10/17/24 [Rx] Exam Exam Patient is in no acute distress and is cooperative with the examination today. Breathing is nonlabored. Patient has a normal mood and affect. Bilateral extremities were evaluated and demonstrates sensation intact to light touch. Palpable pedal pulses are present. No significant edema is present. Bilateral hips were examined. The patient has no pain with log roll of the hips. Internal rotation to 30 degrees and external rotation to 30 degrees is painless. Negative FADIR. Left knee was examined today. The left knee is in reasonable alignment. Range of motion from 0-120 degrees. Knee is stable to varus and valgus as well as AP translation with <5mm. Patient has a negative McMurrays. There is no pain with patellofemoral compression and no crepitus noted. The knee is nontender to palpation. Right knee incisions clean dry intact. Range of motion 0 to 95 degrees Assessment and Plan Problem List (1) Arthritis of right knee: Status: Acute Plan: Patient is doing well status post right total knee replacement. She should finish her DVT prophylaxis and start physical therapy. We will see her back in approximately 4 weeks with new x-rays. Office Procedures GNS Level of Care Nursing/Assessment Patient Status: Established Patient Nursing Assessment/Reassesment: Medication Reconciliation, Update PMH in EMR and Vital Signs Coordination of Care: Complex Care and Chronic Disease 1-5, Education Complex Pt/Fam, Consent,records obtained, informed consent, Results/Orders obtained and Staff clarify orders Special Needs: Language special needs Established Patient Charge Established Patient Point Assignment: 95 Established Patient Point Charge: EP Level 3 (80-115) MA Intake Visit Data Collection New Patient or Established: Established Patient (seen at [facility] within 3 years) Reason for Visit:: 2 WEEK POST OP Seen by Clinical Staff ONLY (RN/MA): No Automotive Manager Required: Yes PCP or OBGYN visit in last 3 months: Yes Hx Now: No Do You Feel Safe at Home: Yes Authorities Contacted: N/A Questionairres Past Medical History Past Medical History Have you ever been diagnosed with any of the following: Neurological Problems Seizures: No Cardiology Problems Hypercholesterolemia: Yes Congestive Heart Failure: No Hypertension: Yes Respiratory Problems Chronic Obstructive Pulmonary Disease (COPD): No Smoking: No Smoking Exposure: No Genital/Urinary Problems Renal Disease: No Kidney Stones: Yes Reproductive Problems Previous Pregnancies: Yes Endocrine Problems Diabetes Mellitus Type 1: No Diabetes Mellitus Type 2: No Other Problems Hospitalization: No Shingles: No Blood Transfusions: No Blood Transfusion Reaction: No Anesthesia Reactions: No Chicken Pox: Yes Cancer: No Surgical History Total Knee Replacement: Yes Subjective Visit Visit for: follow up visit, post op #1 and knee Immunization / Flu Flu Vaccine in the Last 12 Months: No Flu Vaccine Exclusion Criteria: No Exclusion Criteria History of Present Illness Chief complaint: right knee oa Patient is a 49-year-old female with severe right knee arthritis. She is status post right total knee replacement. She was the pain is continuing to improve. Personal History Additional comments: WALKER WAS GIVEN TO PATIENT Pain Pain level (0-10): 5 Pain duration: ALL DAY Pain location: inside (medial), anterior and posterior Pain quality: sharp and other (specify) (SWELLING) Pain timing: night, increases with activity and stairs Associated signs & symptoms: none Ambulatory data Ambulatory device: walker (GIVEN TODAY FOR SX) Treatments Number of previous injections: 1 Improvement with previous injections: No Improvement with PT: No Improvement with NSAIDS: no Review of Systems Review of Systems: All systems negative unless otherwise noted in HPI.
[2024-10-17 14:30] VITALS: BP 132/89; PULSE 79; RESP 18; TEMP 36.3; O2SAT 94; BMI 30.3
== END 2024-10-17 14:47 | disposition home or self-care (01) ==
LOC: HODSRG 14:08
PROVIDERS: PCP Physician Assistant Medical; Referring Provider Physician Assistant Medical; Supervising Provider Orthopaedic Surgery Adult Reconstructive Orthopaedic Surgery; Visit Provider Orthopaedic Surgery Adult Reconstructive Orthopaedic Surgery
DX: M17.11 Unilateral primary osteoarthritis, right knee (principal); Z96.651 Presence of right artificial knee joint; I10 Essential (primary) hypertension; E78.00 Pure hypercholesterolemia, unspecified
CPT/HCPCS: 99213; G0463

== ENCOUNTER 2024-11-06 10:00 | Outpatient (RCR) | payer MEDICAID, SELFPAY ==
--- NOTE | 2024-10-29 11:35 | PT.OIERPT ---
PT OP Initial Eval Patient Information Outpatient Physical Therapy Treatment Date: 10/29/24 Visit Reasons: tka right Medical Diagnosis: Z96.651 Treatment Dx #1: R knee pain Treatment Dx #2: R knee dec ROM Start of Care: 10/29/24 Date of Onset: 10/01/24 Smoking Status Smoking Status: Never smoker Initial Assessment Subjective: Pt is 49 yr old jordanian speaking female s/p R TKA presents ambulating with a walker. She reports pain with bending the knee and at night. She is ambulating HH distances. 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 R knee AROM: ? Flexion: 90 deg ? Extension: -6 deg ? SLR: ? 35 deg ? Strength: ? Quads and hamstrings 3-/5 ? Antalgic gait pattern with decreased WB tolerance on R LE Assessment: Pt presentation consistent with post op TKA with decreased ROM, strength ? and WB tolerance. Pt lacks a few degrees of knee extension and flexion is limited by ? myofascial limitations and pain.? Pt requires skilled therapy to improve ROM ? and strength and has good rehab potential.? Eval followed by HEP with printout. Short Term and Fpc Goals 1.? Ind with HEP 2.? Improved knee ROM to full extension to 115 deg flexion 3.? Improved quad and hamstring strength to 4+/5 4.? Improved ambulatory tolerance to community distances with symmetrical gait pattern Treatment Plan 1. Manual therapy ? 2. Therex ? 3. Modalities as indicated, moist heat, ice, estim Frequency and Duration: 2-3x a week for 18 sessions plus the evaluation Certification Dates: 10/29/24 TO 01/27/25 Procedure Charges OP PT Eval Mod Complex 30 minutes: Yes
--- NOTE | 2024-10-31 14:43 | PT.ODAYNRPT ---
PT Outpatient Daily Note OP Daily Note Outpatient Physical Therapy Treatment Date: 10/31/24 Visit Reasons: tka right Subjective: Pt reports R knee is doing ok, has been compliant with HEP. Objective: Please see flow sheet for ther ex list. Assessment: Pt demonstrates knee extension lag during SLR exercise. Pt instructed on SAQ exercise to work on quad recruitment. Plan: Continue with poC. Length of Time (minutes) of Treatment: 30 Minutes Procedure Charges Therapeutic Exercise 30 minutes: Yes
--- NOTE | 2024-11-04 16:09 | PT.ODAYNRPT ---
PT Outpatient Daily Note OP Daily Note Outpatient Physical Therapy Treatment Date: 11/04/24 Visit Reasons: tka right Subjective: Pain with bending the knee, states she continues to be compliant with HEP Objective: See F/S for therex MT: PROM knee flexion x 7 Assessment: Pt demonstrates improved knee extension with tactile cue and instructed to continue HEP to improve knee flexion. Plan: Continue with POC Length of Time (minutes) of Treatment: 30 Minutes Procedure Charges Therapeutic Exercise 30 minutes: Yes
--- NOTE | 2024-11-06 10:39 | PT.ODAYNRPT ---
PT Outpatient Daily Note OP Daily Note Outpatient Physical Therapy Treatment Date: 11/06/24 Visit Reasons: tka right Subjective: Reports continued pain with R knee flexion, and continues to remain compliant with HEP Objective: See F/S for therex MT: PROM R knee flexion x 7 min Ice R knee x 5 min Assessment: Pt tolerated therex well, explains she is continuing to experience pain with knee flexion. Pt instructed to continue HEP to improve ROM. Plan: Continue with POC Length of Time (minutes) of Treatment: 30 Minutes Procedure Charges Therapeutic Exercise 30 minutes: Yes
== END 2024-11-09 23:59 | disposition home or self-care (01) ==
LOC: CPTX 10:00
PROVIDERS: PCP Physician Assistant Medical; Referring Provider Orthopaedic Surgery Adult Reconstructive Orthopaedic Surgery; Visit Provider Orthopaedic Surgery Adult Reconstructive Orthopaedic Surgery
DX: M25.561 Pain in right knee (principal); Z96.651 Presence of right artificial knee joint; I10 Essential (primary) hypertension
CPT/HCPCS: 97110; 97162

== ENCOUNTER 2024-11-13 10:27 | Outpatient (AMB) | payer MEDICAID, SELFPAY ==
[2024-11-13 10:55] VITALS: BP 133/78; PULSE 94; RESP 19; TEMP 36.4; O2SAT 96; BMI 30.1
--- NOTE | 2024-11-13 10:55 | ORTHONT_ITS ---
Vital signs 11/13/24 10:55 Height 1.52 m Height Method Stated Weight 69.626 kg Weight Measurement Method Standing Scale BMI 30.1 BP 133/78 H Blood Pressure Source Automatic Cuff Blood Pressure Location Left Upper Arm Position Sitting Respiration 19 Pulse 94 Pulse Source Monitor Temp 97.5 F Temp Source Temporal Artery Scan Pulse Oximetry (%) 96 Oxygen Delivery Method Room Air Med/Allergies Allergies & Medications Allergies No Known Allergies Allergy (Verified 11/13/24 10:56) Medication Reconciliation meloxicam 7.5 mg tablet 7.5 mg PO QDAY #45 tabs 07/03/24 [Rx Confirmed 11/13/24] atorvastatin 10 mg tablet 10 mg PO DAILY 09/30/24 [History Confirmed 11/13/24] hydroxyzine HCl 25 mg tablet 25 mg PO HS PRN sleep 09/30/24 [History Confirmed 11/13/24] losartan 100 mg tablet 100 mg PO DAILY 09/30/24 [History Confirmed 11/13/24] acetaminophen 500 mg tablet (Acetaminophen Extra Strength) 1,000 mg (2 x 500 mg) PO Q6H PRN pain #90 tabs 10/01/24 [Rx Confirmed 11/13/24] aspirin 81 mg tablet,delayed release 81 mg PO BID #60 tabs 10/01/24 [Rx Confirmed 11/13/24] doxycycline hyclate 100 mg tablet 100 mg PO BID #14 tabs 10/01/24 [Rx Confirmed 11/13/24] gabapentin 300 mg capsule 300 mg PO .qhs #30 caps 10/01/24 [Rx Confirmed 11/13/24] oxycodone 5 mg tablet 5 mg PO Q6H PRN pain #28 tabs 10/01/24 [Rx Confirmed 11/13/24] sennosides 8.6 mg-docusate sodium 50 mg tablet (Senna-S) 1 tab-cap PO QDAY #30 tabs 10/01/24 [Rx Confirmed 11/13/24] oxycodone 5 mg tablet 5 mg PO Q6H PRN pain #28 tabs 10/17/24 [Rx Confirmed 11/13/24] oxycodone 5 mg tablet 5 mg PO Q6H PRN pain #28 tabs 10/31/24 [Rx Confirmed 11/13/24] Exam Exam Patient is in no acute distress and is cooperative with the examination today. Breathing is nonlabored. Patient has a normal mood and affect. Bilateral extremities were evaluated and demonstrates sensation intact to light touch. Palpable pedal pulses are present. No significant edema is present. Bilateral hips were examined. The patient has no pain with log roll of the hips. Internal rotation to 30 degrees and external rotation to 30 degrees is painless. Negative FADIR. Left knee was examined today. The left knee is in reasonable alignment. Range of motion from 0-120 degrees. Knee is stable to varus and valgus as well as AP translation with <5mm. Patient has a negative McMurrays. There is no pain with patellofemoral compression and no crepitus noted. The knee is nontender to palpation. Right knee incisions clean dry intact. Range of motion 0 to 100 degrees Assessment and Plan Problem List (1) Arthritis of right knee: Status: Acute Plan: Patient is doing well status post right total knee replacement. She is doing well and we will see her back with new xrays. We will see her back in 6 weeks Office Procedures GNS Level of Care Nursing/Assessment Patient Status: Established Patient Nursing Assessment/Reassesment: Medication Reconciliation, Update PMH in EMR and Vital Signs Coordination of Care: Complex Care and Chronic Disease 1-5, Education Complex Pt/Fam, Consent,records obtained, informed consent, Results/Orders obtained and Staff clarify orders Special Needs: Language special needs Established Patient Charge Established Patient Point Assignment: 95 Established Patient Point Charge: EP Level 3 (80-115) MA Intake Visit Data Collection New Patient or Established: Established Patient (seen at [facility] within 3 years) Reason for Visit:: 4 WEEK POST OP Seen by Clinical Staff ONLY (RN/MA): No Coordinator Skill Training Program Required: Yes PCP or OBGYN visit in last 3 months: Yes Hx Now: No Do You Feel Safe at Home: Yes Authorities Contacted: N/A Questionairres Past Medical History Past Medical History Have you ever been diagnosed with any of the following: Neurological Problems Seizures: No Cardiology Problems Hypercholesterolemia: Yes Congestive Heart Failure: No Hypertension: Yes Respiratory Problems Chronic Obstructive Pulmonary Disease (COPD): No Smoking: No Smoking Exposure: No Genital/Urinary Problems Renal Disease: No Kidney Stones: Yes Reproductive Problems Previous Pregnancies: Yes Endocrine Problems Diabetes Mellitus Type 1: No Diabetes Mellitus Type 2: No Other Problems Hospitalization: No Shingles: No Blood Transfusions: No Blood Transfusion Reaction: No Anesthesia Reactions: No Chicken Pox: Yes Cancer: No Surgical History Total Knee Replacement: Yes Subjective Visit Visit for: follow up visit, post op #2 and knee Immunization / Flu Flu Vaccine in the Last 12 Months: No Flu Vaccine Exclusion Criteria: No Exclusion Criteria History of Present Illness Chief complaint: right knee oa Patient is a 49-year-old female with severe right knee arthritis. She is status post right total knee replacement. She reports the pain is continuing to improve. Personal History Additional comments: WALKER WAS GIVEN TO PATIENT Pain Pain level (0-10): 5 Pain duration: ALL DAY Pain location: inside (medial) and anterior Pain quality: sharp and other (specify) (SWELLING) Pain timing: stairs Associated signs & symptoms: none Ambulatory data Ambulatory device: walker (GIVEN TODAY FOR SX) Treatments Number of previous injections: 1 Improvement with previous injections: No Improvement with PT: No Improvement with NSAIDS: no Review of Systems Review of Systems: All systems negative unless otherwise noted in HPI.
--- NOTE | 2024-11-13 11:26 | XR_ITS ---
Examination: Bilateral AP knees single view Right knee PA lateral axial 3 views TECHNIQUE: Bilateral AP knees standing single view Right knee PA standing flexion, standing lateral, axial right knee 3 views total 4 views Date and time: November 14, 1999 2537 hours INDICATIONS: Status post knee replacement September 2024. FINDINGS: Moderate osteopenia. Total right knee arthroplasty with satisfactory alignment. No patellar dislocation No loosening of the prosthetic components. Mild to moderate narrowing medial lateral joint spaces left knee IMPRESSION: Total right knee arthroplasty with satisfactory alignment
== END 2024-11-13 11:39 | disposition home or self-care (01) ==
LOC: HODSRG 10:27
PROVIDERS: PCP Physician Assistant Medical; Referring Provider Physician Assistant Medical; Supervising Provider Orthopaedic Surgery Adult Reconstructive Orthopaedic Surgery; Visit Provider Orthopaedic Surgery Adult Reconstructive Orthopaedic Surgery
DX: M17.11 Unilateral primary osteoarthritis, right knee (principal); Z96.651 Presence of right artificial knee joint; I10 Essential (primary) hypertension; E78.00 Pure hypercholesterolemia, unspecified
CPT/HCPCS: 73564; 99213; G0463

== ENCOUNTER 2024-12-09 16:00 | Outpatient (RCR) | payer MEDICAID, SELFPAY ==
--- NOTE | 2024-11-14 15:05 | PTNOTE_ITS ---
PT Outpatient Daily Note OP Daily Note Outpatient Physical Therapy Treatment Date: 11/14/24 Visit Reasons: tka right Subjective: Pt reports R knee is progressing but slowly. Pt is not using SP C for short distance walking but not confident enough to use for community distance. Objective: Please see flow sheet for ther ex list. Assessment: Pt demonstrates poor quad muscle recruitment during step up, lowered step height but pt compensates with heavy use of COLD WORK OPERATOR. Plan: Work on quad strength and GT with SPC. Length of Time (minutes) of Treatment: 30 Minutes Procedure Charges Therapeutic Exercise 30 minutes: Yes
--- NOTE | 2024-11-18 15:37 | PT.ODAYNRPT ---
PT Outpatient Daily Note OP Daily Note Outpatient Physical Therapy Treatment Date: 11/18/24 Visit Reasons: tka right Subjective: Reports continued pain with R knee flexion, and continues to remain compliant with HEP Objective: See F/S for therex MT: PROM R knee flexion x 7 min Ice R knee x 5 min Assessment: Pt tolerated therex well, explains she is continuing to experience pain with knee flexion. Pt instructed to continue HEP to improve ROM. PROM about 95 deg flexion with manual therapy Plan: Continue with POC Length of Time (minutes) of Treatment: 30 Minutes Procedure Charges Therapeutic Exercise 30 minutes: Yes
--- NOTE | 2024-11-20 15:42 | PT.ODAYNRPT ---
PT Outpatient Daily Note OP Daily Note Outpatient Physical Therapy Treatment Date: 11/20/24 Visit Reasons: tka right Subjective: Pt reports knee feels like it gives out at times. Objective: Please see flw sheet for ther ex list. Assessment: Pt demonstrates poor quad recruitment, pt instructed on HEP for quad strengthening encouraged to perform. Pt not able to perform SLR without assistance. Plan: Continue with poC. Length of Time (minutes) of Treatment: 30 Minutes Procedure Charges Therapeutic Exercise 30 minutes: Yes
--- NOTE | 2024-11-26 16:40 | PT.ODAYNRPT ---
PT Outpatient Daily Note OP Daily Note Outpatient Physical Therapy Treatment Date: 11/26/24 Visit Reasons: tka right Subjective: Pt c/o of minimal pain R knee, states she is compliant with HEP. Objective: See F/S for therex performed Assessment: Unable to perform SLR due to weakness; advised to continue with HEP to improve quad strength. Progressed to full step ups and lateral step ups on 4 inch step; performed best w/ vc to engage glutes when ascending. Improved tolerance to passive knee flexion st. Plan: Continue with POC Length of Time (minutes) of Treatment: 30 Minutes Procedure Charges Therapeutic Exercise 30 minutes: Yes
--- NOTE | 2024-11-28 16:07 | PT.ODAYNRPT ---
PT Outpatient Daily Note OP Daily Note Outpatient Physical Therapy Treatment Date: 11/28/24 Visit Reasons: tka right Subjective: Pt reports knee flexibility is improving. Objective: Please see flow sheet for ther ex list. Assessment: High focus on normalizing gait and improving functional strength. Plan: Continue with POC. Length of Time (minutes) of Treatment: 30 Minutes Procedure Charges Therapeutic Exercise 30 minutes: Yes
--- NOTE | 2024-12-02 16:51 | PT.ODAYNRPT ---
PT Outpatient Daily Note OP Daily Note Outpatient Physical Therapy Treatment Date: 12/02/24 Visit Reasons: tka right Subjective: Pt reports an increase in Rt knee pain for the last two days. Pt is unsure what caused the sudden increase in pain. Objective: See F/S for therex Tens x 7 min Rt knee Assessment: Fair tolerance with therex due to increase Rt knee pain. Exercises modified to hook lying position, improved tolerance w/ therex w/ minimal increase in pain. Continued knee pain w/ passive knee flexion stretch. Applied tens unit and ice post session; pt expressed the tens unit helped decrease pain. Plan: Continue with POC Length of Time (minutes) of Treatment: 30 Minutes Procedure Charges Therapeutic Exercise 30 minutes: Yes
--- NOTE | 2024-12-04 17:09 | PT.ODAYNRPT ---
PT Outpatient Daily Note OP Daily Note Outpatient Physical Therapy Treatment Date: 12/04/24 Visit Reasons: tka right Subjective: Pt c/o pain to R knee, states pain has decreased since her last visit but is still noticing swelling to Rt knee. Objective: See F/S for therex performed Rt knee flexion ROM: 105 degrees Assessment: Improved tolerance with therex, able to perform lateral step ups with no increase in pain. Improved tolerance to passive knee stretching; knee flexion ROM is progressing. Plan: Continue with POC Length of Time (minutes) of Treatment: 30 Minutes Procedure Charges Therapeutic Exercise 30 minutes: Yes
--- NOTE | 2024-12-09 16:35 | PT.ODAYNRPT ---
PT Outpatient Daily Note OP Daily Note Outpatient Physical Therapy Treatment Date: 12/09/24 Visit Reasons: tka right Subjective: Pt reports minimal pain to Rt knee, continuing to ambulate with SPC. Objective: See F/S for therex performed Assessment: Improved tolerance to therex due to a decrease in Rt knee pain. Improved tolerance with passive knee flexion stretch. Plan: Continue with POc Length of Time (minutes) of Treatment: 30 Minutes Procedure Charges Therapeutic Exercise 30 minutes: Yes
== END 2024-12-09 23:59 | disposition home or self-care (01) ==
LOC: CPTX 16:00
PROVIDERS: PCP Orthopaedic Surgery Adult Reconstructive Orthopaedic Surgery; Referring Provider Orthopaedic Surgery Adult Reconstructive Orthopaedic Surgery; Visit Provider Orthopaedic Surgery Adult Reconstructive Orthopaedic Surgery
DX: M25.561 Pain in right knee (principal); Z96.651 Presence of right artificial knee joint; I10 Essential (primary) hypertension
CPT/HCPCS: 97110

== ENCOUNTER 2025-01-01 12:38 | Outpatient (AMB) | payer MEDICAID, SELFPAY ==
--- NOTE | 2025-01-01 13:10 | PD.ORTHCLVIS ---
Vital signs 01/01/25 13:12 Height 1.52 m Height Method Stated Weight 74.899 kg Weight Measurement Method Standing Scale BMI 32.4 BP 131/84 H Blood Pressure Source Automatic Cuff Blood Pressure Location Left Upper Arm Position Sitting Respiration 18 Pulse 90 Pulse Source Monitor Temp 97.1 F Temp Source Temporal Artery Scan Pulse Oximetry (%) 94 L Oxygen Delivery Method Room Air Med/Allergies Allergies & Medications Allergies No Known Allergies Allergy (Verified 01/01/25 13:13) Medication Reconciliation meloxicam 7.5 mg tablet 7.5 mg PO QDAY #45 tabs 07/03/24 [Rx Confirmed 01/01/25] atorvastatin 10 mg tablet 10 mg PO DAILY 09/30/24 [History Confirmed 01/01/25] hydroxyzine HCl 25 mg tablet 25 mg PO HS PRN sleep 09/30/24 [History Confirmed 01/01/25] losartan 100 mg tablet 100 mg PO DAILY 09/30/24 [History Confirmed 01/01/25] aspirin 81 mg tablet,delayed release 81 mg PO BID #60 tabs 10/01/24 [Rx Confirmed 01/01/25] doxycycline hyclate 100 mg tablet 100 mg PO BID #14 tabs 10/01/24 [Rx Confirmed 01/01/25] gabapentin 300 mg capsule 300 mg PO .qhs #30 caps 10/01/24 [Rx Confirmed 01/01/25] oxycodone 5 mg tablet 5 mg PO Q6H PRN pain #28 tabs 10/01/24 [Rx Confirmed 01/01/25] sennosides 8.6 mg-docusate sodium 50 mg tablet (Senna-S) 1 tab-cap PO QDAY #30 tabs 10/01/24 [Rx Confirmed 01/01/25] oxycodone 5 mg tablet 5 mg PO Q6H PRN pain #28 tabs 10/17/24 [Rx Confirmed 01/01/25] oxycodone 5 mg tablet 5 mg PO Q6H PRN pain #28 tabs 10/31/24 [Rx Confirmed 01/01/25] acetaminophen 500 mg tablet (Acetaminophen Extra Strength) 1,000 mg (2 x 500 mg) PO Q6H PRN pain #90 tabs 11/13/24 [Rx Confirmed 01/01/25] Exam Exam Patient is in no acute distress and is cooperative with the examination today. Breathing is nonlabored. Patient has a normal mood and affect. Bilateral extremities were evaluated and demonstrates sensation intact to light touch. Palpable pedal pulses are present. No significant edema is present. Bilateral hips were examined. The patient has no pain with log roll of the hips. Internal rotation to 30 degrees and external rotation to 30 degrees is painless. Negative FADIR. Left knee was examined today. The left knee is in reasonable alignment. Range of motion from 0-120 degrees. Knee is stable to varus and valgus as well as AP translation with <5mm. Patient has a negative McMurrays. There is no pain with patellofemoral compression and no crepitus noted. The knee is nontender to palpation. Right knee incisions clean dry intact. Range of motion 0 to 100 degrees. Assessment and Plan Problem List (1) Arthritis of right knee: Status: Acute Plan: Patient is doing well status post right total knee replacement. She is doing well and her xrays look great We will see her back in [facility] for routine followup. We will make sure she gets disability for this another 6 months as she is still limited functionally Office Procedures GNS Level of Care Nursing/Assessment Patient Status: Established Patient Nursing Assessment/Reassesment: Medication Reconciliation, Update PMH in EMR and Vital Signs Coordination of Care: Complex Care and Chronic Disease 1-5, Education Complex Pt/Fam, Consent,records obtained, informed consent, Results/Orders obtained and Staff clarify orders Special Needs: Language special needs Established Patient Charge Established Patient Point Assignment: 95 Established Patient Point Charge: EP Level 3 (80-115) MA Intake Visit Data Collection New Patient or Established: Established Patient (seen at [facility] within 3 years) Reason for Visit:: 6 WEEK TKA FU Seen by Clinical Staff ONLY (RN/MA): No Wardrobe Specialist Required: Yes PCP or OBGYN visit in last 3 months: Yes Hx Now: No Do You Feel Safe at Home: Yes Authorities Contacted: N/A Questionairres Past Medical History Past Medical History Have you ever been diagnosed with any of the following: Neurological Problems Seizures: No Cardiology Problems Hypercholesterolemia: Yes Congestive Heart Failure: No Hypertension: Yes Respiratory Problems Chronic Obstructive Pulmonary Disease (COPD): No Smoking: No Smoking Exposure: No Genital/Urinary Problems Renal Disease: No Kidney Stones: Yes Reproductive Problems Previous Pregnancies: Yes Endocrine Problems Diabetes Mellitus Type 1: No Diabetes Mellitus Type 2: No Other Problems Hospitalization: No Shingles: No Blood Transfusions: No Blood Transfusion Reaction: No Anesthesia Reactions: No Chicken Pox: Yes Cancer: No Surgical History Total Knee Replacement: Yes Subjective Visit Visit for: follow up visit, post op #3 and knee Immunization / Flu Flu Vaccine in the Last 12 Months: No Flu Vaccine Exclusion Criteria: No Exclusion Criteria History of Present Illness Chief complaint: right knee oa Patient is a 49-year-old female with severe right knee arthritis. She is status post right total knee replacement. She reports the pain is continuing to improve. Personal History Additional comments: WALKER WAS GIVEN TO PATIENT Pain Pain level (0-10): 5 Pain duration: ALL DAY Pain location: inside (medial) and anterior Pain quality: sharp and other (specify) (SWELLING) Pain timing: stairs Associated signs & symptoms: none Ambulatory data Ambulatory device: walker (GIVEN TODAY FOR SX) Treatments Number of previous injections: 1 Improvement with previous injections: No Improvement with PT: No Improvement with NSAIDS: no Review of Systems Review of Systems: All systems negative unless otherwise noted in HPI.
[2025-01-01 13:12] VITALS: BP 131/84; PULSE 90; RESP 18; TEMP 36.2; O2SAT 94; BMI 32.4
== END 2025-01-01 13:24 | disposition home or self-care (01) ==
LOC: HODSRG 12:38
PROVIDERS: PCP Physician Assistant Medical; Referring Provider Physician Assistant Medical; Supervising Provider Orthopaedic Surgery Adult Reconstructive Orthopaedic Surgery; Visit Provider Orthopaedic Surgery Adult Reconstructive Orthopaedic Surgery
DX: Z47.1 Aftercare following joint replacement surgery (principal); Z96.651 Presence of right artificial knee joint; I10 Essential (primary) hypertension
CPT/HCPCS: 99213; G0463

== ENCOUNTER 2025-01-07 15:30 | Outpatient (RCR) | payer MEDICAID, SELFPAY ==
--- NOTE | 2024-12-11 17:28 | PT.ODAYNRPT ---
PT Outpatient Daily Note OP Daily Note Outpatient Physical Therapy Treatment Date: 12/11/24 Visit Reasons: RT TKA Subjective: Pt reports increased swelling to Rt knee along with a hot sensation, denies any redness to the area. Objective: See F/S for therex performed Assessment: Decreased tolerance to total gym squats exercise due to increase in Rt knee pain, discontinued and reported relief with rest. Good tolerance with passive knee flexion stretch. Ice pack applied post session. Plan: Continue with POC Length of Time (minutes) of Treatment: 30 Minutes Procedure Charges Therapeutic Exercise 30 minutes: Yes
--- NOTE | 2024-12-22 18:08 | PT.ODAYNRPT ---
PT Outpatient Daily Note OP Daily Note Outpatient Physical Therapy Treatment Date: 12/22/24 Visit Reasons: RT TKA Subjective: The R knee feels like it's going to give out when she bends it while walking. She's using a SPC Objective: See f/S for therex Assessment: Pt has weakness in first 30 deg of knee flexion but can step up on stair. Plan: Continue with additional authorized visits Length of Time (minutes) of Treatment: 30 Minutes Procedure Charges Therapeutic Exercise 30 minutes: Yes
--- NOTE | 2024-12-29 15:58 | PT.ODAYNRPT ---
PT Outpatient Daily Note OP Daily Note Outpatient Physical Therapy Treatment Date: 12/29/24 Visit Reasons: RT TKA Subjective: Pt reports knee is doing better but notices her knee still mary, the last time it happened was this morning. Objective: Please see flow sheet for ther ex list. Assessment: Focus on restoring strength and ROM within post op protocol. Plan: Continue with pOC. Length of Time (minutes) of Treatment: 30 Minutes Procedure Charges Therapeutic Exercise 30 minutes: Yes
--- NOTE | 2025-01-07 15:48 | PT.ODAYNRPT ---
PT Outpatient Daily Note OP Daily Note Outpatient Physical Therapy Treatment Date: 01/07/25 Visit Reasons: RT TKA Subjective: Pt reports knee is doing better, notices knee mary less. Objective: Please see flow sheet for ther ex list. Assessment: Progressing strengthening interventions per pt tolerance. Plan: Continue with pOC. Length of Time (minutes) of Treatment: 30 Minutes Procedure Charges Therapeutic Exercise 30 minutes: Yes
== END 2025-01-09 23:59 | disposition home or self-care (01) ==
LOC: CPTX 15:30
PROVIDERS: PCP Orthopaedic Surgery Adult Reconstructive Orthopaedic Surgery; Referring Provider Orthopaedic Surgery Adult Reconstructive Orthopaedic Surgery; Visit Provider Orthopaedic Surgery Adult Reconstructive Orthopaedic Surgery
DX: Z47.1 Aftercare following joint replacement surgery (principal); Z96.651 Presence of right artificial knee joint; M25.561 Pain in right knee; I10 Essential (primary) hypertension
CPT/HCPCS: 97110

== ENCOUNTER 2025-02-03 11:00 | Outpatient (RCR) | payer MEDICAID, SELFPAY ==
--- NOTE | 2025-01-13 10:34 | PTNOTE_ITS ---
PT Outpatient Daily Note OP Daily Note Outpatient Physical Therapy Treatment Date: 01/13/25 Visit Reasons: RT TKA Subjective: Pt reports knee is progressing. Objective: Please see flow sheet for ther ex list. Assessment: Pt demonstrates improved quad recruitment going up step during exercise but still using ROUNDER AND BACKER. Plan: Continue with pOC. Length of Time (minutes) of Treatment: 30 Minutes Procedure Charges Therapeutic Exercise 30 minutes: Yes
--- NOTE | 2025-01-15 09:07 | PT.ODAYNRPT ---
PT Outpatient Daily Note OP Daily Note Outpatient Physical Therapy Treatment Date: 01/15/25 Visit Reasons: RT TKA Subjective: The R knee feels like it's going to give out when she bends it while walking. She's using a SPC Objective: See f/S for therex Assessment: Improved AROM into flexion of R knee to about 106 deg Plan: Continue with additional authorized visits Length of Time (minutes) of Treatment: 30 Minutes Procedure Charges Therapeutic Exercise 30 minutes: Yes
--- NOTE | 2025-01-19 08:25 | PT.ODAYNRPT ---
PT Outpatient Daily Note OP Daily Note Outpatient Physical Therapy Treatment Date: 01/19/25 Visit Reasons: RT TKA Subjective: The R knee feels like it's going to give out when she bends it while walking. She's not using a SPC today Objective: See f/S for therex Assessment: Improved AROM into flexion of R knee to about 106 deg Plan: Continue with additional authorized visits Length of Time (minutes) of Treatment: 30 Minutes Procedure Charges Therapeutic Exercise 30 minutes: Yes
--- NOTE | 2025-01-22 08:54 | PT.ODAYNRPT ---
PT Outpatient Daily Note OP Daily Note Outpatient Physical Therapy Treatment Date: 01/22/25 Visit Reasons: RT TKA Subjective: The R knee feels a little stronger lately. She's not using a SPC to ambulate Objective: See f/S for therex Assessment: Improved AROM into flexion of R knee to about 106 deg. Gait is not symmetrical yet with decreased WB on R LE. Plan: Continue per POC Length of Time (minutes) of Treatment: 30 Minutes Procedure Charges Therapeutic Exercise 30 minutes: Yes
--- NOTE | 2025-01-27 10:15 | PT.ODAYNRPT ---
PT Outpatient Daily Note OP Daily Note Outpatient Physical Therapy Treatment Date: 01/27/25 Visit Reasons: RT TKA Subjective: The R knee feels a little stronger lately. She's not using a SPC to ambulate Objective: See f/S for therex Assessment: Improved AROM into flexion of R knee to about 108 deg. Gait is not symmetrical yet with decreased WB on R LE and lateral sway to the R that she can partially correct when she walks slower. Plan: Continue per POC Length of Time (minutes) of Treatment: 30 Minutes Procedure Charges Therapeutic Exercise 30 minutes: Yes
--- NOTE | 2025-01-29 10:05 | PT.ODAYNRPT ---
PT Outpatient Daily Note OP Daily Note Outpatient Physical Therapy Treatment Date: 01/29/25 Visit Reasons: RT TKA Subjective: Pt reports knee is swollen and painful today. Objective: Please see flow sheet for ther ex list. Assessment: Pt presents with R knee edema, applied cold pack at end of session. Plan: Continue with poC. Length of Time (minutes) of Treatment: 30 Minutes Procedure Charges Therapeutic Exercise 30 minutes: Yes
--- NOTE | 2025-02-03 12:45 | PT.ODAYNRPT ---
PT Outpatient Daily Note OP Daily Note Outpatient Physical Therapy Treatment Date: 02/03/25 Visit Reasons: RT TKA Subjective: Pt reports R knee is doing better. Objective: Please see flow sheet for ther ex list. Assessment: Added strengthening completed with good tolerance. Plan: Continue with poC. Length of Time (minutes) of Treatment: 30 Minutes Procedure Charges Therapeutic Exercise 30 minutes: Yes
== END 2025-02-08 23:59 | disposition home or self-care (01) ==
LOC: CPTX 11:00
PROVIDERS: PCP Orthopaedic Surgery Adult Reconstructive Orthopaedic Surgery; Referring Provider Orthopaedic Surgery Adult Reconstructive Orthopaedic Surgery; Visit Provider Orthopaedic Surgery Adult Reconstructive Orthopaedic Surgery
DX: Z96.651 Presence of right artificial knee joint (principal); Z47.1 Aftercare following joint replacement surgery; M25.561 Pain in right knee; I10 Essential (primary) hypertension
CPT/HCPCS: 97110

== ENCOUNTER 2025-02-17 10:00 | Outpatient (RCR) | payer MEDICAID, SELFPAY ==
--- NOTE | 2025-02-09 09:59 | PT.ODAYNRPT ---
PT Outpatient Daily Note OP Daily Note Outpatient Physical Therapy Treatment Date: 02/09/25 Visit Reasons: RT TKA Subjective: The R knee feels a little stronger lately. She's not using a SPC to ambulate Objective: See f/S for therex Assessment: Improved AROM into flexion of R knee to about 108 deg. Gait is not symmetrical yet with decreased WB on R LE and fwd trunk lean that she can partially correct when she walks slower. Plan: Continue per POC Length of Time (minutes) of Treatment: 30 Minutes Procedure Charges Therapeutic Exercise 30 minutes: Yes
--- NOTE | 2025-02-17 14:09 | PT.ODS1RPT ---
PT OP Progress/Discharge Note Date of Service: 02/17/25 Progress Note/DC Note Progress Note/Discharge Note: DC Note Patient Information Visit Reasons: RT TKA Service Continue Service or Discharge: Discharge Discharge Date: 02/17/25 Status Subjective: The R knee feels a little stronger lately. She's not using a SPC to ambulate Objective: See f/S for therex R knee ArOM: PROM: Flexion: 100 deg 108 deg Extension: full SLR: 45 deg Strength: Quads and HS: 4+/5 Gait: slightly unsymmetrical with lateral lean to the forward Assessment: Pt has attended visits with good progress with goals. She has improved PROM into flexion of R knee to about 108 deg which is almost to the goal of 115 deg and extension is full to meet that goal. Pt has improved quad and HS strength to meet the goal of 4+/5. Gait has improved and is not quite symmetrical yet with decreased WB on R LE and fwd trunk lean that she can correct when she walks slower. Pt can squat with hands on the bars without R knee pain Plan: D/C with HEP Procedure Charges Therapeutic Exercise 30 minutes: Yes
== END 2025-03-11 23:59 | disposition home or self-care (01) ==
LOC: CPTX 10:00
PROVIDERS: PCP Orthopaedic Surgery Adult Reconstructive Orthopaedic Surgery; Referring Provider Orthopaedic Surgery Adult Reconstructive Orthopaedic Surgery; Visit Provider Orthopaedic Surgery Adult Reconstructive Orthopaedic Surgery
DX: Z47.1 Aftercare following joint replacement surgery (principal); Z96.651 Presence of right artificial knee joint; M25.561 Pain in right knee; I10 Essential (primary) hypertension
CPT/HCPCS: 97110